=== PATIENT | female | born 1960 | race Caucasian/White ===

== ENCOUNTER → 2024-02-05 12:04 | Outpatient (REF) | payer OTHER, SELFPAY | LOC: RAD 12:04 | PROVIDERS: ATTENDING PHYSICIAN Family Medicine | DX: Z00.00 Encounter for general adult medical examination without abnormal findings (principal); R06.02 Shortness of breath; R06.09 Other forms of dyspnea; M54.41 Lumbago with sciatica, right side | CPT/HCPCS: 71046; 72100 ==

== ENCOUNTER → 2024-06-17 10:51 | Outpatient (REF) | payer OTHER, SELFPAY ==
--- NOTE | 2024-06-17 12:36 | PN.DE ---
Diabetes Education
- -
06/17/2024 Patient request appointment for help with pump setup
Patient has new Tandem tslim x2 pump with control IQ. Uses Novolog insulin [employer] xc infusion sets and DexCom G6.
All settings from current pump transferred to new pump as well as CGM set up. Bluetooth on, Pump paired with iphone.
Basal cho correction target
12am .8 7 50 110
5am .8 7 50 110
10am .8 7 50 110
2pm .8 7 50 110
3:30pm .8 5 50 110
6pm .9 5 50 110
8pm .8 7 50 110
10pm .8 7 50 110
24 hour basal total 19.4
CGM reading on pump. Reviewed all new features of pump. Patient to call with any difficulty.
== END ==
LOC: DES 10:51
PROVIDERS: ATTENDING PHYSICIAN Family Medicine
DX: E10.9 Type 1 diabetes mellitus without complications (principal)
CPT/HCPCS: 99078

== ENCOUNTER → 2024-09-28 10:25 | Outpatient (REF) | payer OTHER, SELFPAY | LOC: WDC 10:25 | PROVIDERS: ATTENDING PHYSICIAN Obstetrics & Gynecology; FAMILY PHYSICIAN Family Medicine | DX: R92.8 Other abnormal and inconclusive findings on diagnostic imaging of breast (principal) | CPT/HCPCS: 76642; 77061; 77065 ==

== ENCOUNTER → 2025-03-28 14:23 | Outpatient (REF) | payer OTHER, SELFPAY | LOC: WDC 14:23 | PROVIDERS: ATTENDING PHYSICIAN Obstetrics & Gynecology; FAMILY PHYSICIAN Family Medicine | DX: R92.8 Other abnormal and inconclusive findings on diagnostic imaging of breast (principal) | CPT/HCPCS: 76642 ==

== ENCOUNTER → 2025-07-09 09:26 | Outpatient (REF) | payer OTHER, SELFPAY | LOC: WDC 09:26 | PROVIDERS: ATTENDING PHYSICIAN Obstetrics & Gynecology; FAMILY PHYSICIAN Family Medicine | DX: Z12.31 Encounter for screening mammogram for malignant neoplasm of breast (principal) | CPT/HCPCS: 77063; 77067 ==